=== PATIENT | female | born 1980 | race African-American/Black ===

== ENCOUNTER 2018-12-07 17:15 | Emergency (ER) | payer MEDICAID, OTHER ==
[~2018-12-07] VITALS: Ht 167.6 cm; Wt 73.0 kg
[2018-12-08 04:00] LABS: EOSINOPHILS % 1.4 % (0.0-5.0); HEMATOCRIT. 37.9 % (36.0-48.0); HEMOGLOBIN. 12.8 g/dL (12.0-16.0); LYMPHOCYTES % 29.1 % (20.0-50.0); MEAN CORPUSCULAR HEMOGLOBIN 31.1 pg (28.0-32.0); MEAN CORPUSCULAR VOLUME 92.4 fL (81.0-99.0); MONOCYTES % 7.6 % (2.0-8.0); NEUTROPHILS % 60.9 % (40.0-76.0); PLATELET 214 x1000/uL (130-400); RED CELL DISTRIBUTION WIDTH 12.8 % (11.6-14.6)
[2018-12-08 04:01] LABS: CHLORIDE 110 mEq/L (98-107)
[2018-12-08 04:03] LABS: INR 1.1; PROTHROMBIN TIME 10.6 sec (9.1-11.1)
[2018-12-08 04:25] LABS: B-HCG QUANTITATIVE 46957 mIU/mL (<3)
[2018-12-08 04:26] LABS: CLARITY URINE CLOUDY (CLEAR); KETONES URINE NEGATIVE (NEGATIVE); LEUKOCYTE ESTERASE URINE TRACE (NEGATIVE); NITRITE URINE NEGATIVE (NEGATIVE); OCCULT BLOOD URINE 3+ (NEGATIVE); PH URINE 5.5 (4.5-8.0); PROTEIN URINE 1+ (NEGATIVE); SPECIFIC GRAVITY URINE 1.015 (1.005-1.030); UROBILINOGEN URINE 0.2 E.U./dL (0.2-1.0)
[2018-12-08 04:41] LABS: COLOR URINE BLOODY (YELLOW)
[2018-12-08 06:40] VITALS: BP 107/60
== END 2018-12-08 06:43 | disposition home or self-care (01) ==
LOC: ER 17:15
DX: O46.91 Antepartum hemorrhage, unspecified, first trimester (principal); Z3A.11 11 weeks gestation of pregnancy
CPT/HCPCS: 36415; 76801; 76817; 80053; 81003; 84702; 85025; 85610; 86850; 86900; 86901; 99284; Z7610